=== PATIENT | male | born 1945 | race Caucasian/White ===

== ENCOUNTER 2017-10-08 11:23 | Day surgery (SDC) | payer MEDICARE, OTHER, SELFPAY ==
--- NOTE | 2017-10-08 | PATH_ITS ---
[facility] Accession Number: [id number] . 01 Material submitted: . PART A: RIGHT COLON PART B: TRANSVERSE COLON PART C: LEFT COLON PART D: SIGMOID COLON PART E: RECTAL LESION . 01 Clinical history: . D: ACTIVE UC . 02 Diagnosis: A-B: Right Colon, Transverse Colon, Biopsies: Colonic mucosa with no significant diagnostic abnormality. Negative for active inflammation, granulomas, dysplasia and malignancy. . C. Left Colon, Biopsies: Chronic colitis without neutrophilic activity. Negative for granulomas, dysplasia and malignancy. . D. Sigmoid Colon, Biopsies: Fragments of tubulovillous adenoma and separate fragments of ulcerated colonic mucosa and granulation tissue. No evidence of invasive carcinoma or high-grade dysplasia. . E. Rectum, Lesion, Biopsy: Tubulovillous adenoma with high-grade dysplasia. Additional deeper levels were examined. No evidence of invasive carcinoma. Please see comment. [facility]/10/10/2017 . 02 Comment: Part D: This could represent an ulcerated tubulovillous adenoma or an area of severely active colitis with ulcer. Endoscopic correlation is recommended. . Part E: Complete removal of the lesion is recommended. As part of routine quality assurance coach, Dr. Valentin Rasmussen also reviewed part E of this case and agrees with the diagnosis. Dr. Bell gave preliminary results to [place] in Dr. Marin's office on 10/10/2017. . 02 Electronically signed: . Neli Bell MD, Pathologist NPI- [id number] . 01 Gross description: . Received five formalin-filled containers, each labeled with the patient's name: . A. In a container labeled right colon, are multiple less than 0.1 cm to 0.3 cm portions of tissue, entirely submitted in cassette A. B. In a container labeled transverse colon, are multiple less than 0.1 cm to 0.3 cm portions of tissue, entirely submitted in cassette B. C. In a container labeled left colon, are two 0.1-0.2 cm portions of tissue, entirely submitted in cassette C. D. In a container labeled sigmoid colon, colon biopsies, active UC, are four 0.2-0.3 cm portions of tissue, entirely submitted in cassette D. E. In a container labeled rectal, are two 0.2 cm portions of tissue, entirely submitted in cassette E. ([id number]) /FRR . 02 Pathologist provided ICD-10: K51.90, D12.8, D12.5 . 02 CPT . 774404, 256646, 307341, 920461, [id number] Performed at: 01 [facility] [address] [place] [address] [id number] MD Magnus Gilmore MD Phone: [phone] Performed at: 02 [facility] [address] [place] [address] [id number] MD Heber Styles MD Phone: [phone]
[2017-10-08 12:06] VITALS: BP 134/79; PULSE 66; RESP 16; TEMP 36; O2SAT 95; BMI 26.6
[2017-10-08] MEDS: SODIUM CHLORIDE 0.9% 1,000 ML 42 ML IV (12:25)
--- NOTE | 2017-10-08 12:50 | SUR.OPER ---
to endo from opd via cart respirations unlabored iv patent positioneed per self for procedure
--- NOTE | 2017-10-08 13:13 | PM.HP.1 ---
History of Present Illness Date Patient Seen: 10/08/17 Time Patient Seen: 13:13 Chief complaint: colonoscopy [id number] Narrative: History of ulcerative colitis with soft stools or rectal bleeding need to assess disease activity Patient History Medical History Ulcerative colitis (Acute) Family & Social History Social History: household members family Meds Home Medications Medication Instructions Recorded Confirmed Type guaifenesin [Mucinex] 400 mg PO Q12H #0 04/22/12 History mesalamine [Apriso] 1.5 g PO DAILY 10/08/17 10/08/17 History Allergies Allergy/AdvReac Type Severity Reaction Status Date / Time No Known Drug Allergies Allergy Verified 10/08/17 12:03 Exam Vital Signs (past 8 hours): - 10/08/17 12:06 Temperature 96.8 F L Pulse Rate 66 Respiratory Rate 16 Blood Pressure 134/79 H Pulse Oximetry 95 Oxygen Delivery Method Room Air Narrative Exam Narrative: Chest clear to auscultation percussion Cardiac exam reveals no S3 or murmur Oropharynx free of lesions Assessment & Plan Plan: Assessment/Plan Narrative: Ulcerative pancolitis, need to assess disease activity. Colonoscopy planned
--- NOTE | 2017-10-08 13:14 | SUR.OPER ---
tolerated procedure well
--- NOTE | 2017-10-08 13:19 | P.OP.ENDO_ITS ---
Operative Date/Time/Diagnoses Date of procedure: 10/08/17 Time of procedure: 13:15 Pre-op diagnosis: See indications Post-op diagnosis: same (See findings) Procedure & Clinicians Study performed: Colonoscopy Indications: Loose stools or rectal bleeding with history of ulcerative colitis need to assess disease activity Surgeon: Lisette Marin Procedure Notes Procedure in detail: After informed consent was obtained the patient was placed in left lateral decubitus position. The video colonoscope was introduced in the rectum slowly advanced to the cecum. Preparation was good. Terminal ileum was intubated and was completely normal. On slow withdrawal mucosa was carefully examined. Scope was removed and the patient tolerated the procedure well Blood loss none Complications none Sedation fentanyl 100 mcg Versed 4 mg IV titration. Total sedation time 22 min Findings 1. Extensive disease activity from the anal verge to 30 cm. Biopsies taken. 2. Extensive rectal lesion covering 1/3 to 1/2 circumference in 3-4 cm long. Most of this was quite soft and may represent a tubulovillous adenoma. Multiple biopsies taken 3. Normal mucosa from cecum to 30 cm 2 biopsies taken every 10 cm and placed in bottles labeled ascending, transverse, and left colon. 4. Normal terminal ileum Will await biopsies the patient but almost certainly he will need referral to colorectal surgery. Id may be appropriate to consider further large biopsies of this area if the initial once charge out clerk to be negative. Sedation minutes: 22 Complications: none Recommendations: Colonscopy in 1 year
[2017-10-08 13:20] VITALS: BP 124/73; PULSE 62; RESP 16; TEMP 36.4; O2SAT 95
[2017-10-08] MEDS: fentaNYL 250 MCG/5 ML INJ 100 MCG IV (13:24)
[2017-10-08] MEDS: MIDAZOLAM 5 MG/5 ML VIAL 4 MG IV (13:24)
== END 2017-10-08 13:52 | disposition home or self-care (01) ==
PROVIDERS: PCP Family Medicine; Visit Provider Internal Medicine Gastroenterology
PROC: 0DJD8ZZ Inspection of Lower Intestinal Tract, Via Natural or Artificial Opening Endoscopic (ICD-10-PCS; CPT 45378; principal; 2017-10-08 12:30)
DX: K51.00 Ulcerative (chronic) pancolitis without complications (principal); D12.2 Benign neoplasm of ascending colon; D12.3 Benign neoplasm of transverse colon; D12.4 Benign neoplasm of descending colon; D12.5 Benign neoplasm of sigmoid colon; K63.9 Disease of intestine, unspecified
CPT/HCPCS: 45380; 88305; J2250; J3010

== ENCOUNTER 2017-11-19 10:56 | Day surgery (SDC) | payer MEDICARE, OTHER, SELFPAY ==
--- NOTE | 2017-11-19 | PATH_ITS ---
[facility] Accession Number: [id number] . 01 Material submitted: . RECTAL POLYP . 02 Diagnosis: . Rectum, Polyp, Biopsy: Multiple fragments of tubulovillous adenoma. No evidence of malignancy or high-grade dysplasia. [facility]/11/20/2017 . 02 Electronically signed: . Neli Bell MD, Pathologist NPI- [id number] . 01 Gross description: . Received in one formalin-filled container labeled with the patient's name and labeled rectal polyp, are multiple portions of tissue and/or debris which range in size from less than 0.1 cm to 0.6 x 0.4 x 0.4 cm. The specimen is filtered, wrapped, and entirely submitted in one cassette. ([id number]) /FRR . 02 Pathologist provided ICD-10: D12.8 . 02 CPT . 544423 Performed at: 01 [facility] [address] [place] [address] [id number] MD Magnus Gilmore MD Phone: [phone] Performed at: 02 [facility] [address] [place], [place] [id number] MD Heber Styles MD Phone: [phone]
[2017-11-19] MEDS: SODIUM CHLORIDE 0.9% 1,000 ML 42 ML IV (11:22)
[2017-11-19 11:24] VITALS: BP 130/79; PULSE 76; RESP 16; TEMP 36.7; O2SAT 97; BMI 25.7
--- NOTE | 2017-11-19 12:57 | PM.HP.1 ---
History of Present Illness Date Patient Seen: 11/19/17 Time Patient Seen: 12:57 Chief complaint: flex sigmoidoscopy w/biopsy [id number] Narrative: Very large rectal polyp suspicious for carcinoma. Need for further biopsies to rule out same Patient History Medical History Rectal polyp (Acute) Ulcerative colitis (Acute) Family & Social History Social History: household members none Meds Home Medications Medication Instructions Recorded Confirmed Type mesalamine [Apriso] 1.5 g PO DAILY 10/08/17 11/19/17 History acetaminophen [Acetaminophen Extra 500 mg PO Q6H PRN 11/19/17 11/19/17 History Strength] Allergies Allergy/AdvReac Type Severity Reaction Status Date / Time No Known Drug Allergies Allergy Verified 10/08/17 12:03 Exam Vital Signs (past 8 hours): - 11/19/17 11:24 Temperature 98.0 F Pulse Rate 76 Respiratory Rate 16 Blood Pressure 130/79 H Pulse Oximetry 97 Oxygen Delivery Method Room Air Narrative Exam Narrative: Oropharynx free of lesion Chest clear to auscultation percussion Cardiac exam reveals no S3 or murmur Assessment & Plan Plan: Assessment/Plan Narrative: Large rectal polyp suspicious for carcinoma need for further biopsies. Risks benefits alternatives sigmoidoscopy been explained this will be performed now unsedated.
--- NOTE | 2017-11-19 13:00 | P.HP_ITS ---
History of Present Illness Date Patient Seen: 11/19/17 Time Patient Seen: 12:57 Chief complaint: flex sigmoidoscopy w/biopsy [id number] Narrative: Very large rectal polyp suspicious for carcinoma. Need for further biopsies to rule out same Patient History Medical History Rectal polyp (Acute) Ulcerative colitis (Acute) Family & Social History Social History: household members none Meds Home Medications Medication Instructions Recorded Confirmed Type mesalamine [Apriso] 1.5 g PO DAILY 10/08/17 11/19/17 History acetaminophen [Acetaminophen Extra 500 mg PO Q6H PRN 11/19/17 11/19/17 History Strength] Allergies Allergy/AdvReac Type Severity Reaction Status Date / Time No Known Drug Allergies Allergy Verified 10/08/17 12:03 Exam Vital Signs (past 8 hours): - 11/19/17 11:24 Temperature 98.0 F Pulse Rate 76 Respiratory Rate 16 Blood Pressure 130/79 H Pulse Oximetry 97 Oxygen Delivery Method Room Air Narrative Exam Narrative: Oropharynx free of lesion Chest clear to auscultation percussion Cardiac exam reveals no S3 or murmur Assessment & Plan Plan: Assessment/Plan Narrative: Large rectal polyp suspicious for carcinoma need for further biopsies. Risks benefits alternatives sigmoidoscopy been explained this will be performed now unsedated.
--- NOTE | 2017-11-19 13:00 | PM.OP.ENDO ---
Operative Date/Time/Diagnoses Date of procedure: 11/19/17 Time of procedure: 13:00 Pre-op diagnosis: See indications Post-op diagnosis: same (See findings) Procedure & Clinicians Study performed: Sigmoidoscopy Same procedure as scheduled: Yes Indications: Large rectal polyp need for further biopsies rule out carcinoma Surgeon: Lisette Marin Procedure Notes Procedure in detail: In after informed consent was obtained the patient was placed in left lateral decubitus position. The video colonoscope was introduced the rectum. Here the severe proctitis was seen with the large rectal polyp. Part of this was nodular and raised in other was flat and spreading. On the nodular raised area several hot snares were used to sample tissue. Scope was removed patient tolerated procedure well Blood loss none Complications none Sedation none Findings 1. Ulcerative colitis severe ulcerative proctitis noted. 2. Large spreading rectal polyp that is probably carcinoma multiple hot snares taken for more tissue for evaluation Patient will follow up with Dr. Hermosillo. Already surgery is scheduled for the 12 of December. Results will be sent to all parties.
[2017-11-19 13:12] VITALS: BP 117/71; PULSE 67; RESP 14; TEMP 36.8; O2SAT 96
== END 2017-11-19 13:22 | disposition home or self-care (01) ==
PROVIDERS: PCP Family Medicine; Visit Provider Internal Medicine Gastroenterology
PROC: 0DJD8ZZ Inspection of Lower Intestinal Tract, Via Natural or Artificial Opening Endoscopic (ICD-10-PCS; CPT 45378; principal; 2017-11-19 12:30)
DX: D12.8 Benign neoplasm of rectum (principal); K51.90 Ulcerative colitis, unspecified, without complications
CPT/HCPCS: 45331; 88305